=== PATIENT | male | born 2000 | race Hispanic/Latino ===

== ENCOUNTER 2020-06-11 18:49 | Emergency (ER) | payer MEDICAID ==
[2020-06-11] MEDS ORDERED: CYCLOBENZAPRINE HCL 10 MG TABLET ONE (20:35)
[2020-06-11] MEDS ORDERED: ACETAMINOPHEN 325 MG TAB ONE (20:35)
[2020-06-11] MEDS ORDERED: IBUPROFEN 600 MG TABLET ONE (20:35)
== END 2020-06-11 20:55 | disposition home or self-care (01) ==
LOC: EDH 18:49
DX: M54.5 Low back pain (principal); J45.909 Unspecified asthma, uncomplicated; K21.9 Gastro-esophageal reflux disease without esophagitis; V49.59XA Passenger injured in collision with other motor vehicles in traffic accident, initial encounter; Y93.89 Activity, other specified; Y92.89 Other specified places as the place of occurrence of the external cause; Y99.8 Other external cause status